=== PATIENT | female | born 1995 | race Caucasian/White ===

== ENCOUNTER 2021-09-19 18:43 | Emergency (ER) | payer OTHER ==
[~2021-09-19] VITALS: Ht 157.5 cm; Wt 83.8 kg
[2021-09-19 19:06] VITALS: BP 120/73
[2021-09-19 19:15] VITALS: BP 112/68
[2021-09-19] MEDS ORDERED: GENTAMICIN SULF5 ML OU (19:35)
[2021-09-19 19:49] VITALS: BP 112/68
== END 2021-09-19 19:49 | disposition home or self-care (01) ==
LOC: ED 18:43
DX: H10.9 Unspecified conjunctivitis (principal)